=== PATIENT | female | born 1970 | race African-American/Black ===

== ENCOUNTER 2020-09-25 11:08 | Day surgery (SDC) | payer MEDICARE, SELFPAY ==
[2020-09-19 12:39] VITALS: BMI 35.2
--- NOTE | 2020-09-24 09:55 | HO.ANESPROP2 ---
Documented by User: Claudine Deshpande 09/24/20 09:56 HPI - Anesthesia Eval Consult details Narrative: 50yo F for Colonoscopy [facility] Past Medical History Medical History Bipolar 1 disorder Elevated cholesterol History of headache HTN (hypertension) PTSD (post-traumatic stress disorder) Surgical History Surgical History Hx of section Hx of hysterectomy Hx of laparoscopy Social History Social History Smoking Status: Never smoker Use of substances other than those prescribed or required for medical reasons: No Advance Directives Information Provided: No Meds Allergies Allergy/AdvReac Type Severity Reaction Status Date / Time No Known Allergies Allergy Verified 09/19/20 12:43 [No Known Allergies*] Home Medications Medication Instructions Recorded Confirmed Type naproxen 250 mg PO BID 09/19/20 09/19/20 History prazosin 2 mg PO BEDTIME 09/19/20 09/19/20 History sertraline 100 mg PO DAILY 09/19/20 09/19/20 History chlorthalidone 1 tab PO DAILY 09/25/20 09/25/20 History Exam Exam Date and Time: September 24, 2020 0955 Height,Weight and Vital Signs: Height 5 ft 4 in Weight 92.986 kg Pertinent Lab Results Pertinent Lab Results: Laboratory Tests 05/21/20 05/21/20 15:33 15:33 WBC 8.6 Hgb 10.9 L Hct 36.6 L Plt Count 345 Sodium 140 Potassium 3.7 Chloride 107 BUN 13 Creatinine 0.89 Assessment and Plan Assessment Anesthesia Assessment: Chart Reviewed Documented by User: Caitlyn Calderon 09/25/20 12:13 [facility] Past Medical History Medical History Bipolar 1 disorder Elevated cholesterol History of headache HTN (hypertension) PTSD (post-traumatic stress disorder) Surgical History Surgical History Hx of section Hx of hysterectomy Hx of laparoscopy Social History Social History Smoking Status: Never smoker Use of substances other than those prescribed or required for medical reasons: No Advance Directives Information Provided: No Meds Allergies Allergy/AdvReac Type Severity Reaction Status Date / Time No Known Allergies Allergy Verified 09/19/20 12:43 [No Known Allergies*] Home Medications Medication Instructions Recorded Confirmed Type naproxen 250 mg PO BID 09/19/20 09/19/20 History prazosin 2 mg PO BEDTIME 09/19/20 09/19/20 History sertraline 100 mg PO DAILY 09/19/20 09/19/20 History chlorthalidone 1 tab PO DAILY 09/25/20 09/25/20 History Exam Airway Mallampati Class: II TM Dist: >3cm Neck ROM: Full Assessment and Plan Assessment Anesthesia Assessment: Anesthesia Plan Discussed and Chart Reviewed Final Anesthetic Review NPO: Yes ASA Class: II Final Preanesthetic Review: No Changes in Pt Med Stat, Meds/Allgs Chart Reviewed, Consent Obtained/Reviewed and Anes Risks/Benef Reviewed Patient Risk: Low Procedure Risk: Low Assessment/Block/Sedation in SS: Assess/Block/Sedation-SS Anesthetic Plan Anesthetic Plan: MAC: Disposition: Standard PACU
[2020-09-25 11:45] VITALS: BP 143/87; PULSE 64; RESP 16; TEMP 36.6; O2SAT 99
[2020-09-25] MEDS: Lactated Ringers 1,000 ML 100 ML IVCONT (11:47)
--- NOTE | 2020-09-25 12:22 | MHC.SHP ---
Pre-Procedural Eval Section B Chief Complaint: SCREENING Details of Present Illness: colon cancer screening #1 (Maternal aunt with colon cancer) Relevant Family History (Specify if Yes): Yes Relevant Social History: None Present Medications: see Short Stay Collaborative assessment Medical History: Significant History (Hypertension, bmi>35) History of Previous Operations: Relevant previous surgery/procedure and date(s) (Csection, partial Hysterectomy) Allergies: Allergies Allergy/AdvReac Type Severity Reaction Status Date / Time No Known Allergies Allergy Verified 09/19/20 12:43 [No Known Allergies*] Review of Systems Sugical H&P ROS: Negative: Constitution, Respiratory, Neurological, Psychiatric and Gastrointestinal Exam Surgical H&P Exam: Normal: HEENT, Normal: Heart, Normal: Lungs, Normal: Extremities and Normal: Abdomen Plan Diagnosis/Plan: Unchanged Patient has been examined and remains a candidate for the planned procedure--YES
--- NOTE | 2020-09-25 13:01 | PM.PROC ---
Brief Operative Note Date of procedure: 09/25/20 Pre-op diagnosis: colon cancer screening Post-op diagnosis: other (Negative exam, excellent prep) Procedure: colonoscopy--no bx; no polyps Anesthesia: MAC (Dr. Bruner) Surgeon: Jessie Bee Estimated blood loss (mL): 0 Pathology: none sent Condition: stable Disposition: PACU
[2020-09-25 13:07] VITALS: BP 139/85; PULSE 74; RESP 18; TEMP 36.2; O2SAT 99
[2020-09-25 13:17] VITALS: BP 151/76; PULSE 58; RESP 18; O2SAT 100
--- NOTE | 2020-09-25 13:41 | HO.POSTANES ---
Post Anesthesia Evaluation Post Anesthesia Evaluation Vital Signs: Vital Signs Temp Pulse Resp BP Pulse Ox 09/25/20 13:17 58 18 151/76 H 100 09/25/20 13:07 97.1 F 74 18 139/85 99 09/25/20 11:45 97.8 F 64 16 143/87 H 99 Anesthesia: Monitored Mental Status: Awake Pain Control: Satisfactory Nausea/Vomiting: None Hydration: Adequate
--- NOTE | 2020-09-25 15:05 | P.PCN_ITS ---
Brief Operative Note Date of procedure: 09/25/20 Pre-op diagnosis: Colon cancer screening--+ hx colon cancer second degree rela tive Post-op diagnosis: other (Normal exam) Procedure: COLONOSCOPY Anesthesia: MAC (MD SHAWNA) Surgeon: Jessie Bee Estimated blood loss (mL): 0 Pathology: none sent Condition: stable Disposition: PACU
--- NOTE | 2020-09-25 22:16 | OP_ITS ---
SURGEON: Jessie Bee MD PREOPERATIVE DIAGNOSIS: Colon cancer screening, paternal aunt with a history of colon cancer. POSTOPERATIVE DIAGNOSIS: Negative/ normal exam. PROCEDURE PERFORMED: Colonoscopy. ESTIMATED BLOOD LOSS: No blood loss. COMPLICATIONS: No complications. ANESTHESIA: Monitored. ANESTHESIOLOGIST: Dr. Bruner. ASSISTANTS: No circulation assistant. SPECIMENS: No specimens removed. SPEECH LANGUAGE ASSISTANT: Dr. Bee. FINDINGS: Digital rectal exam revealed adequate sphincter tone. Video colonoscope was introduced without difficulty. It was navigated into the rectosigmoid and sigmoid area. This area was somewhat telescoped as well as suggestion of extrinsic adhesions with looping needing early on extrinsic abdominal pressure to facilitate movement through descending, transverse, ascending colon down into the cecum. Appendiceal orifice was seen. Ileocecal valve was well seen. Prep was excellent. Good mucosal detail. Slow rotational views on withdrawing the scope. No lesions were seen. Anorectal verge was clear. PLAN: Current recommendations for repeat asymptomatic screening in this patient will be 7 years due to a family history in a second-degree relative with colon cancer. GRAFT OR IMPLANTS: No grafts or implants. CONDITION: Postprocedure, stable. Jessie Bee MD MEN/MODL / [id number] MTDD
== END 2020-09-25 14:08 | disposition home or self-care (01) ==
PROVIDERS: PCP Physician Assistant; Visit Provider Internal Medicine Gastroenterology
PROC: 0DJD8ZZ Inspection of Lower Intestinal Tract, Via Natural or Artificial Opening Endoscopic (ICD-10-PCS; CPT 45378; principal; 2020-09-25 12:30)
DX: Z12.11 Encounter for screening for malignant neoplasm of colon (principal); F31.9 Bipolar disorder, unspecified; F43.10 Post-traumatic stress disorder, unspecified; I10 Essential (primary) hypertension; E78.00 Pure hypercholesterolemia, unspecified; Z90.710 Acquired absence of both cervix and uterus; Z79.899 Other long term (current) drug therapy
CPT/HCPCS: G0121

== ENCOUNTER → 2020-10-16 15:08 | Outpatient (BNVA) | payer MEDICARE, SELFPAY | PROVIDERS: PCP Physician Assistant; Referring Provider Physician Assistant; Visit Provider Nurse Practitioner | DX: E78.00 Pure hypercholesterolemia, unspecified (principal); I10 Essential (primary) hypertension; Z80.0 Family history of malignant neoplasm of digestive organs | CPT/HCPCS: 99212; Q3014 ==

== ENCOUNTER 2021-01-23 10:49 | Outpatient (REF) | payer MEDICARE, SELFPAY ==
--- NOTE | ~2021-01-23 | XR_ITS ---
EXAMINATION: XR LUMBOSACRAL SPINE CLINICAL INFORMATION: Pain COMPARISON: None TECHNIQUE: Three views of the lumbosacral spine. FINDINGS: Bone alignment is normal. No fracture or dislocation is seen. Disc spaces are normal. There is lower lumbar spine facet arthritis. XR/XR lumbar spine 2-3V IMPRESSION: Lower lumbar spine facet arthritis.
[2021-01-23 11:40] LABS: MANUAL DIFF FLAG NO
[2021-01-23 11:51] LABS: Basophils Percent Auto 0.6 % (0-2); Eosinophils Absolute Auto 0.1 X10*3/uL (0.0-0.4); Eosinophils Percent Auto 1.7 % (0-4); Hematocrit 39.9 % (37-47); Hemoglobin 11.8 g/dl (12.0-16.0); Imm Gran Abs Auto 0.01 X10*3/uL (0.00-0.03); Imm Gran Pct Auto 0.2 % (0.0-0.4); Lymphocytes Absolute Auto 2.1 X10*3/uL (1.2-4.9); Lymphocytes Percent Auto 31.9 % (20-40); Mean Corpuscular HGB Conc 29.6 g/dl (31.0-35.0); Mean Corpuscular Hemoglobin 21.7 pg (27.0-33.0); Mean Corpuscular Volume 73.3 fL (80-98); Mean Platelet Volume 11.2 fL (9.4-12.3); Monocytes Absolute Auto 0.4 X10*3/uL (0.1-1.2); Neutrophils Percent Auto 59.6 % (45-73); Platelet Count 406 X10*3/uL (160-400); Red Blood Count 5.44 X10*6/uL (4.20-5.50); Red Cell Distribution Width 15.7 % (11.0-16.0); White Blood Count 6.6 X10*3/uL (4.8-10.8)
[2021-01-23 12:35] LABS: Glucose Urine UA NEG (NEG); Leukocyte Esterase Urine NEG (NEG); Nitrite Urine NEG (NEG); PH 7.5 (5.0-8.0); Specific Gravity - Urine 1.025 (1.005-1.025); Urine Blood TRACE (NEG); Urine Ketones NEG (NEG); Urine Protein NEG (NEG-TRACE)
[2021-01-23 12:41] LABS: Appearance Urine CLOUDY; Color Urine YELLOW
[2021-01-23 12:55] LABS: Alanine Aminotransferase 21 U/L (0-31); Albumin Level 4.2 g/dL (3.5-5.0); Alkaline Phosphatase 66 U/L (39-117); Anion Gap 12 (12-20); Aspartate Amino Transferase 16 U/L (5-31); Bilirubin Total 0.5 mg/dL (0.0-1.0); Blood Urea Nitrogen 9 mg/dL (9-16); Calcium 9.1 mg/dL (8.4-10.2); Carbon Dioxide 25 mmol/L (22-29); Chloride 108 mmol/L (96-108); Cholesterol 241 mg/dL; Estimated Glomerular Filt Rate > 60; Glucose Fasting 94 mg/dL (60-99); HDL Cholesterol 42 mg/dL; LDL Cholesterol Calculated 172 mg/dl; Potassium 4.1 mmol/L (3.3-5.1); Sodium 141 mmol/L (135-145); Total Protein 7.2 g/dL (6.5-8.0); Triglycerides 135 mg/dL
[2021-01-23 13:19] LABS: Amorphous Sediment Urine 3+ /LPF; Bacteria Urine TRACE /LPF; WBC Urine 0-2 /HPF (0-4)
== END 2021-01-23 10:50 | disposition home or self-care (01) ==
LOC: HO.LAB 10:49
PROVIDERS: PCP Physician Assistant; Visit Provider Nurse Practitioner Family
DX: M54.9 Dorsalgia, unspecified (principal); I10 Essential (primary) hypertension; E78.00 Pure hypercholesterolemia, unspecified; N39.0 Urinary tract infection, site not specified
CPT/HCPCS: 36415; 72100; 80053; 80061; 81001; 81003; 85025

== ENCOUNTER 2022-06-07 12:12 | Outpatient (REF) | payer MEDICARE, SELFPAY ==
--- NOTE | ~2022-06-07 | MM_ITS ---
EXAMINATION: MM SCREENING DIGITAL BREAST TOMOSYNTHESIS, BILATERAL CLINICAL INFORMATION: Screening. Asymptomatic. The lifetime risk of breast cancer based on the Tyrer-Cuzick Model is 6%. COMPARISON: Mammography: 920, 02/01/2019, outside mammography 03/24/2011 ([facility]). TECHNIQUE: Digital breast tomosynthesis is performed in both the craniocaudal and mediolateral oblique views along with computer-aided detection (CAD). Synthesized 2D images are generated from the tomosynthesis. FINDINGS: There are scattered areas of fibroglandular density (ACR BI-RADS breast composition Category b). There are no significant masses, abnormal calcifications, or other abnormalities. Parenchymal pattern is similar to prior studies. The axilla and skin contours are unremarkable. MM/MM tomosynthesis screening BI IMPRESSION: No mammographic evidence of malignancy. ASSESSMENT: BI-RADS 1: Negative RECOMMENDATION: Routine annual mammography screening. This patient's information was entered into a reminder system with a target due date for their next mammogram.
== END 2022-06-07 12:13 | disposition home or self-care (01) ==
LOC: HO.MAMMO 12:12
PROVIDERS: PCP Physician Assistant; Visit Provider Physician Assistant
DX: Z12.31 Encounter for screening mammogram for malignant neoplasm of breast (principal)
CPT/HCPCS: 77063; 77067

== ENCOUNTER → 2023-03-08 09:07 | Outpatient (BNVA) | payer MEDICARE, SELFPAY | PROVIDERS: PCP Physician Assistant; Visit Provider Physician Assistant ==

== ENCOUNTER → 2023-04-13 13:59 | Outpatient (BNVA) | payer OTHER, SELFPAY | PROVIDERS: PCP Physician Assistant; Referring Provider Physician Assistant; Visit Provider Physician Assistant Surgical ==

== ENCOUNTER → 2023-05-17 10:40 | Outpatient (BNVA) | payer OTHER, SELFPAY | PROVIDERS: PCP Physician Assistant; Visit Provider Dietitian, Registered | DX: E66.9 Obesity, unspecified (principal); Z68.33 Body mass index [BMI] 33.0-33.9, adult | CPT/HCPCS: 97802 ==

== ENCOUNTER 2023-08-09 10:03 | Outpatient (AMB) | payer OTHER, SELFPAY ==
--- NOTE | 2023-08-09 10:03 | MHC.OFFVISWM ---
Intake VS Expanded 08/09/23 10:07 Height 5 ft 4 in Weight 200 lb BMI 34.3 BP 147/82 H Blood Pressure Location Rt brachial Blood Pressure Position Sitting Pulse 72 Pulse Source Pulse Oximeter Temp 97.0 F Temperature Source Temporal Artery Scan Pulse Oximetry 100 Oxygen Delivery Method Room Air Body Fat 83.6 Body Fat Percentage 41.8 Free Fat Mass 116.4 Muscle Mass 110.4 Visceral Mass 11.0 Water Mass 82.6 BMR 1,610 Intake Visit Reasons: [facility] follow up Allergies No Known Allergies [No Known Allergies*] Allergy (Verified 08/09/23 10:06) Medication List - Last Reconciled 08/09/23 by EMMIE Quintero chlorthalidone 50 mg PO DAILY cyclobenzaprine 10 mg PO BEDTIME PRN 30 days fluticasone propionate 50 mcg/actuation (Flonase Allergy Relief) 2 sprays intranasal DAILY ibuprofen 600 mg PO Q8H PRN 30 days loratadine (Claritin) 10 mg PO DAILY prazosin 2 mg PO BEDTIME sertraline 200 mg PO DAILY HPI HPI Comments History of Present Illness Details Pt presents in followup for [facility]. Visit #3. Starting weight: 204.6 Weight at last visit: 195 Total weight change: -4.6 Pt notes she was motivated when she started the plan but lost that after last visit. [place] overwhelmed, did watch [facility] videos but unsure if she processed all the information. Current meal plan: Premier protein shakes premade second premier shake snack - sami [employer] 20g protein yogurt meal Exercise: walking 40 minutes PFS Medical History Bipolar 1 disorder History of headache PTSD (post-traumatic stress disorder) Surgical History History of colonoscopy Hx of hysterectomy Hx of laparoscopy Hx of section Family History Father Unknown family medical history Mother Hx of type 2 diabetes mellitus Family history of high blood pressure Hx of gallstones History of ulcer disease Larynx cancer Social History Housing: House Alcohol intake: former Patient Tobacco Use Status: Never used Tobacco e-Cigarette/Vaping Use: Never Used Current occupational status: retired and disabled Cognitive needs: No Hearing needs: No Vision needs: Yes Physical Exam Vital Signs: Last Vital Signs Temp 97.0 F 08/09/23 10:07 Pulse 72 08/09/23 10:07 BP 147/82 H 08/09/23 10:07 Pulse Ox 100 08/09/23 10:07 Oxygen Delivery Method Room Air 08/09/23 10:07 BMI result Body Mass Index 34.3 Assessment & Plan Assessment & Plan (1) Obese: Code(s): E66.9 - Obesity, unspecified Qualifiers: Obesity type: due to excess calories Obesity classification: adult class 1 (BMI 30 - 34.9) Serious obesity comorbidity presence: without serious comorbidity Body mass index: BMI 33.0-33.9 Qualified Code(s): E66.09 - Other obesity due to excess calories; Z68.33 - Body mass index [BMI] 33.0-33.9, adult Plan We discussed whether pt would like changes to meal plan today but pt did say the plan was overall working well for her when she did it and she would like to try again. Suggested watching [employer] videos again to review. Can also change her meal time to lunch and have a shake for dinner if that works better with her schedule for that day. If she starts to struggle with this plan I encouraged her to reach out before next appt via email and we can adjust. Reminded pt to have labs drawn. RTC 1 month to see me; at this time pt is not interested in another visit with RD. Patient is obese and is not considered stable at this time. I spent a total of 30 minutes reviewing/updating records, examining the patient and counseling the patient on weight management as detailed above. Coding Level of Care Code Est Pt Level 4 (30953) Diagnoses Class 1 obesity due to excess calories without serious comorbidity with body mass index (BMI) of 33.0 to 33.9 in adult E66.09; Z68.33 Obesity type: due to excess calories Obesity classification: adult class 1 (BMI 30 - 34.9) Serious obesity comorbidity presence: without serious comorbidity Body mass index: BMI 33.0-33.9
[2023-08-09 10:07] VITALS: BP 147/82; PULSE 72; TEMP 36.1; O2SAT 100; BMI 34.3
== END 2023-08-09 10:41 | disposition home or self-care (01) ==
PROVIDERS: PCP Physician Assistant; Visit Provider Physician Assistant Surgical
DX: E66.09 Other obesity due to excess calories (principal); Z68.33 Body mass index [BMI] 33.0-33.9, adult
CPT/HCPCS: 99214

== ENCOUNTER → 2023-08-09 10:03 | Outpatient (BNVA) | payer OTHER, SELFPAY | PROVIDERS: PCP Physician Assistant; Visit Provider Physician Assistant Surgical ==

== ENCOUNTER 2023-09-19 09:14 | Outpatient (REF) | payer OTHER, SELFPAY ==
[2023-09-19 09:53] LABS: MANUAL DIFF FLAG NO
[2023-09-19 10:49] LABS: Basophils Percent Auto 0.5 % (0-2); Eosinophils Absolute Auto 0.2 X10*3/uL (0.0-0.4); Eosinophils Percent Auto 2.5 % (0-4); Hematocrit 34.9 % (37.0-47.0); Hemoglobin 10.5 g/dl (12.0-16.0); Imm Gran Abs Auto 0.02 X10*3/uL (0.00-0.03); Imm Gran Pct Auto 0.3 % (0.0-0.4); Lymphocytes Absolute Auto 2.3 X10*3/uL (1.2-4.9); Lymphocytes Percent Auto 30.5 % (20-40); Mean Corpuscular HGB Conc 30.1 g/dl (31.0-35.0); Mean Corpuscular Hemoglobin 21.9 pg (27.0-33.0); Mean Corpuscular Volume 72.7 fL (80.0-98.0); Mean Platelet Volume 11.2 fL (9.4-12.3); Monocytes Absolute Auto 0.5 X10*3/uL (0.1-1.2); Monocytes Percent Auto 6.1 % (2-11); Neutrophils Absolute Auto 4.5 x10*3/uL (2.0-8.3); Neutrophils Percent Auto 60.1 % (45-73); Platelet Count 351 X10*3/uL (160-400); Red Cell Distribution Width 15.6 % (11.0-16.0); White Blood Count 7.5 X10*3/uL (4.8-10.8)
[2023-09-19 11:17] LABS: Estimated Average Glucose 114 mg/dL; Hemoglobin A1c % 5.6 % (<6.0)
[2023-09-19 11:28] LABS: Alanine Aminotransferase 39 U/L (0-31); Alkaline Phosphatase 63 U/L (39-117); Anion Gap 13 (12-20); Aspartate Amino Transferase 33 U/L (5-31); Bilirubin Total 0.4 mg/dL (0.0-1.0); Blood Urea Nitrogen 11 mg/dL (9-16); C Reactive Protein 0.99 mg/dL (< or = 0.50); Calcium 9.4 mg/dL (8.4-10.2); Carbon Dioxide 27 mmol/L (22-29); Chloride 105 mmol/L (96-108); Cholesterol 192 mg/dL (<200); Estimated Glomerular Filt Rate > 60; Glucose Random 93 mg/dL (60-115); HDL Cholesterol 43 mg/dL (>40); Iron 59 mcg/dL (30-160); LDL Cholesterol Calculated 137 mg/dL (<100); Percent Iron Saturation 24 % (15-50); Potassium 3.1 mmol/L (3.3-5.1); Sodium 142 mmol/L (135-145); Total Iron Binding Capacity 242 mcg/dL (228-428); Total Protein 7.2 g/dL (6.5-8.0); Triglycerides 63 mg/dL (<150); Unsaturated Iron Binding 183 ug/dL
[2023-09-19 11:53] LABS: Folate 9.9 ng/mL (> or = 4.0); Vitamin B12 217 pg/mL (200-900)
[2023-09-19 11:54] LABS: Ferritin 121 ng/mL (10-250); Insulin 11 uU/mL (2-29); TSH reflex Free T4 0.88 uIU/mL (0.32-4.0); Vitamin D 25-OH Total 20.7 ng/mL (>30)
[2023-09-20 18:13] LABS: Calcium (PTHI) 8.4 mg/dL (8.6-10.4); PTHI 57 pg/mL (16-77)
[2023-09-22 14:19] LABS: Vitamin B1 11 nmol/L (8-30)
[2023-09-22 16:19] LABS: Zinc 67 mcg/dL (60-130)
[2023-09-23 04:03] LABS: Vitamin A 43 mcg/dL (38-98)
== END 2023-09-19 09:15 | disposition home or self-care (01) ==
LOC: HO.LAB 09:14
PROVIDERS: Visit Provider Physician Assistant Surgical
DX: E66.9 Obesity, unspecified (principal); Z59.48 Other specified lack of adequate food
CPT/HCPCS: 36415; 80053; 80061; 82306; 82607; 82728; 82746; 83036; 83525; 83540; 83970; 84425; 84443; 84590; 84630; 85025; 86140

== ENCOUNTER 2023-09-28 09:38 | Outpatient (AMB) | payer OTHER, SELFPAY ==
[2023-09-28 09:41] VITALS: BP 142/100; PULSE 70; RESP 17; O2SAT 95; BMI 35.4
--- NOTE | 2023-09-28 09:41 | A.OFFPC_ITS ---
Vital Signs 09/28/23 09:41 09/28/23 10:35 Height 5 ft 4 in Weight 206 lb 6 oz BMI 35.4 BP 142/100 H 158/96 H Blood Pressure Location Lt brachial Position Sitting Respiration 17 Pulse 70 Pulse Source Pulse Oximeter Pulse Oximetry (%) 95 Oxygen Delivery Method Room Air Intake Visit Reasons: PE Allergies No Known Allergies [No Known Allergies*] Allergy (Verified 09/28/23 10:07) Medication List - Last Reconciled 09/28/23 by Ozzie Rivas PA-C chlorthalidone 50 mg PO DAILY cholecalciferol (vitamin D3) 50 mcg PO DAILY cyclobenzaprine 10 mg PO BEDTIME PRN 30 days fluticasone propionate 50 mcg/actuation (Flonase Allergy Relief) 2 sprays intranasal DAILY ibuprofen 600 mg PO Q8H PRN 30 days iron,carbonyl-vitamin C 65 mg iron- 125 mg (Vitron-C) 1 tab PO BEDTIME loratadine (Claritin) 10 mg PO DAILY prazosin 2 mg PO BEDTIME sertraline 200 mg PO DAILY Tobacco use date assessed: 05/11/22 HPI PE HPI Details Patient is a 53-year-old female here today for annual physical. Patient has a past medical history significant for hypertension, hyperlipidemia chronic low back pain, PTSD, MDD. .. PTSD: Patient is followed by psychiatrist and mental health therapist whom managers her mental health medications. She still has prolonged grief symptoms secondary to traumatic experience .. : Hypertension: Blood pressure elevated today in office. She continues to be adherent to her blood pressure medication. Does not monitor blood pressure at home. Otherwise denies any chest discomfort, headaches, vision issues. .. Obesity: Not followed [place] weight management program and [facility] is. Was able to lose weight recently though has gained it back. She is somewhat discouraged at this time. Colonoscopy: Done in [address] Bee normal repeat 7 years due to family history colon cancer Vaccines: Up-to-date with COVID vaccine, UTD Tdap. Mammogram: Mammogram 2021 - BI-RADS 1. Needs up-to-date mammogram- Will order [employer]: Had a partial hysterectomy. ( linn [employer]) Reviewed labs with patient and noted a microcytic anemia. She reports she has a thalassemia. Has had iron infusions in the past with good affect on her energy. Will refer to hematology for evaluation of possible iron infusions Laboratory Tests 10/23/23 09:51 RBC 4.80 Hgb 10.5 L MCV 72.7 L Potassium 3.1 L D AST 33 H 25-OH Vitamin D To jasiel 20.7 L Zinc 67 PFSH Medical History Lower back pain UTI (urinary tract infection) Back pain History of headache Elevated cholesterol HTN (hypertension) Surgical History History of colonoscopy Hx of hysterectomy Hx of laparoscopy Hx of section Family History (Updated 09/28/23 @ 10:15 by Ozzie Rivas PA-C) Father Unknown family medical history Mother Hx of type 2 diabetes mellitus Family history of high blood pressure Hx of gallstones History of ulcer disease Larynx cancer Brother Prostate cancer Social History Housing: House Alcohol intake: former Patient Tobacco Use Status: Never used Tobacco e-Cigarette/Vaping Use: Never Used Current occupational status: retired and disabled Cognitive needs: No Hearing needs: No Vision needs: Yes Questionnaire PHQ-9 Over the last 2 weeks, how often have you been bothered by any of the following problems? 1. Little interest or pleasure in doing things: nearly every day 2. Feeling down, depressed, or hopeless: nearly every day 3. Trouble falling or staying asleep, or sleeping too much: more than half the days 4. Feeling tired or having little energy: more than half the days 5. Poor appetite or overeating: not at all 6. Feeling bad about yourself - or that you are a failure or have let yourself or your family down: not at all 7. Trouble concentrating on things, such as reading the newspaper or watching television: not at all 8. Moving or speaking so slowly that other people could have noticed. Or the opposite - being so fidgety or restless that you have been moving around a lot more than usual: not at all 9. Thoughts that you would be better off or of hurting yourself in some way: not at all (Per patient is more about hurting other people. ) Total score: 10 Depression Screening Interpretation: Positive Depression Screening Follow-up: In treatment Depression Screening Done: Yes 44145 - PHQ-9 Billing: Yes Source: Developed by Tatyana Vela Kurt Kroenke and colleagues, with an educational juan from [employer]. Thrive Questionnaire Date Thrive assessed: 09/28/23 I am a: Patient What is your living situation today?: I have a steady place to live Within the past 12 months, did the food you bought not last and you didn't have the money to get more?: Never true Within the past 12 months, did you worry whether your food would run out before you got money to buy more?: Never true Do you have trouble paying for medicines?: No Do you have trouble getting transportation to medical appointments?: No Do you have trouble paying your heating and electricity bill?: No Do you have trouble taking care of your child, family member or friend?: No Do you have trouble with day-to-day activities such as bathing, preparing meals, shopping, managing finances, etc.?: No Are you currently unemployed and looking for a job?: No Are you interested in more education?: No Please select the resources that you would like help with: None Currently or been in a relationship where the following occur: no concerns reported AUDIT C Alcohol Use Questionnaire (AUDIT-C) 1. How often do you have a drink containing alcohol?: Never 3. How often do you have six or more drinks on one occasion?: Never Total Score: 0 DESTINEE-7 AMB Questionnaire DESTINEE-7 Date DESTINEE - 7 assessed: 09/28/23 Feeling nervous, anxious, or on edge: 3 = Nearly every day Not being able to stop or control worryin = Nearly every day Worrying too much about different things: 3 = Nearly every day Trouble relaxin = More than half the days Being so restless that it is hard to sit still: 2 = More than half the days Becoming easily annoyed or irritable: 3 = Nearly every day Feeling afraid as if something awful might happen: 0 = Not at all Total DESTINEE-7 score (0-4 normal; 5-9 mild; 10-14 moderate; 15-21 severe): 16 Source: Developed by Tatyana Vela Kurt Kroenke and colleagues, with an educational juan from [employer]. DESTINEE-7 Assessment Billing DESTINEE-7 Assessment Tool: DESTINEE-7 Assessment 91339 Review of Systems Const Denies body aches, Denies chills, Denies excessive sweating, Denies fatigue, Denies fever(s) and Denies headache(s) Eyes Denies blurry vision ENT Denies dysphagia, Denies vertigo, Denies dizziness, Denies headache(s), Denies hearing loss and Denies tinnitus Card Denies chest pain, Denies chest pain with activity, Denies syncope, Denies irregular heart rhythm and Denies dyspnea Resp Denies chest congestion, Denies cough, Denies hemoptysis, Denies dyspnea and Denies wheezing GI Denies abdominal pain, Denies melena, Denies hematochezia, Denies coffee ground emesis, Denies dysphagia, Denies diarrhea, Denies nausea and Denies vomiting Denies urinary frequency, Denies dysuria, Denies urinary hesitancy and Denies urinary urgency Musc Denies arthralgias, Denies limited range of motion, Denies muscle cramps and Denies muscle weakness Skin/Breast Denies rash and Denies skin ulcer Neuro Denies Abnormal speech present, Denies confusion, Denies vertigo, Denies dizziness, Denies syncope, Denies headache(s), Denies memory loss and Denies seizure-like activity Psych Denies anxiety, Denies confusion, Denies depression, Denies memory loss, Denies panic attacks and Denies paranoia Endo Denies excessive sweating, Denies fatigue, Denies flushing, Denies polydipsia and Denies polyuria Aller/Immun Denies wheezing Physical exam (Primary Care) Vital Signs: Last Vital Signs Pulse 70 09/28/23 09:41 Resp 17 09/28/23 09:41 BP 158/96 H 09/28/23 10:35 Pulse Ox 95 09/28/23 09:41 Oxygen Delivery Method Room Air 09/28/23 09:41 BMI result Body Mass Index 35.4 Tobacco/Smoking Status: Tobacco use Status Tobacco use date assessed 05/11/22 09/28/23 09:45 Patient Tobacco Use Status Never used Tobacco 09/28/23 09:45 e-Cigarette/Vaping Use Never Used 09/28/23 09:45 PHQ-9: PHQ-9 Score PHQ-9: Total score 10 09/28/23 10:10 Depression Screening Interpretation: Positive Depression Screening Follow-up: In treatment Thrive Assessment: Date of Thrive Assessment Date Thrive assessed 09/28/23 09/28/23 09:53 Currently or been in a relationship where the following occur: no concerns reported Const General: cooperative, comfortable, no acute distress, alert and awake; No confusion Orientation/consciousness: oriented to person, oriented to place, patient oriented x3 and No confusion HENMT Head: Yes normocephalic Ears: external ears normal and TM's normal bilaterally Face and sinus: No sinus tenderness Mouth: Normal oral and palatal mucosa present and tongue normal Teeth and gingiva: dentition normal and gingiva normal Throat: Yes posterior oropharynx normal, Yes tonsils normal and Yes uvula midline Eyes Conjunctivae: conjunctivae normal Sclerae: sclerae normal Pupils: Equal, round and reactive pupils present EOM: EOMs intact bilaterally Direct Ophthalmoscopy: No no photophobia Neck Neck: Yes no lymphadenopathy, No tender and Yes no JVD Thyroid: Thyroid normal Carotids: no bruits Chest Chest palpation & inspection: no tenderness Resp Effort & Inspection: normal respiratory effort, no audible wheezes, not labored and no stridor Auscultation: no crackles, no rales, no rhonchi and no wheezes Cardio Jugular venous distension: no JVD Rate: regular rate, not bradycardic and not tachycardic Rhythm: regular rhythm Bruits: no carotid bruits Peripheral pulses: Peripheral pulses 2+ throughout GI Inspection: Yes normal to inspection, No abdominal wall ecchymosis and No visible herniation Palpation (GI): Soft to palpation, nontender, no guarding, not rigid and No hepatosplenomegaly present Auscultation: normoactive bowel sounds General: Yes no CVA tenderness Back/Spine/Pelvis Back: no CVA tenderness and No back tenderness Cervical Spine: cervical ROM normal Thoracic/Lumbar Spine: thoracic and lumbar spine normal to inspection, straight leg raise negative bilaterally, No thoraco-lumbar ROM limited and No lumbar spinal tenderness Skin Lesions: no lesions Rashes: no rashes Wounds: no wounds Neuro General: oriented to person, oriented to place, patient oriented x3, CN's II-XI intact bilaterally and No confusion Cranial nerves: Yes Equal, round and reactive pupils present and Yes Normal accommodation reflex present Cognition (Neuro): normal cognition Speech: No Abnormal speech present Gait exam (Neuro): Normal gait present Motor exam (neuro): 5/5 motor strength present throughout Extrem Right upper extremity: full ROM; no cyanosis Left upper extremity: full ROM; no cyanosis Right lower extremity: no edema Left lower extremity: no edema Psych Appearance: grossly normal Mental Status: mental status grossly normal Affect: normal affect Attitude: cooperative Thought process: Normal thought process present Office Procedures Flu Questionnaire Does the patient have a severe egg allergy?: No Does the patient have severe life threatening allergies?: No Does the patient have a fever or illness today?: No Has the patient ever had Guillain-[place] Syndrome?: No Has the patient ever had any past reaction to a flu shot?: No Immunizations flu vacc [id number] 6mos up(PF) 60 mcg(15 mcgx4)/0.5 mL IM syringe Performing Provider: Ozzie Rivas PA-C Performing Location: [facility] Administered by: CRESENCIO Schwartz on 09/28/23 09:57 Dose Route Admin Location Dispensed Lot Number Expiration Date 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 0.5 mL IM Left Deltoid 0.5 mL [id number] 05/27/24 [id number] [employer] VIS Given Date VIS Provided VIS Publication Date 09/28/23 Single Vaccine 21 Eligibility Eligibility Date Funding Source Not [facility] Eligible 09/28/23 Private Assessment and Plan Assessment & Plan (1) Annual physical exam: Code(s): Z00.00 - Encounter for general adult medical examination without abnormal findings (2) HTN (hypertension): Code(s): I10 - Essential (primary) hypertension Qualifiers: Hypertension type: unspecified Qualified Code(s): I10 - Essential (primary) hypertension Plan: Blood pressure elevated today in office. Advised on low-sodium diet and continu e to work on weight reduction. Advised to monitor blood pressure at home. Will consider adding on amlodipine to her blood pressure med regime if blood pressures remain above 140/90. Goal blood pressures to be below 140/90. (3) Elevated cholesterol: Code(s): E78.00 - Pure hypercholesterolemia, unspecified Plan: . Patient does have history of elevated total cholesterol and LDL. Will recheck fasting lipids and if LDL above 160 will consider starting statin medication. (4) Family history of colon cancer: Comment: In a 2nd degree relative negative scope 08/2020 repeat 7 years aeb Code(s): Z80.0 - Family history of malignant neoplasm of digestive organs Plan: Colonoscopy done In 2020, has family history of colon cancer in secondary relative, needs repeat 7 years. (5) PTSD (post-traumatic stress disorder): Code(s): F43.10 - Post-traumatic stress disorder, unspecified Plan: Continues to follow mental health therapist and a psychiatrist whom manages her mental health medications. She still does suffer with depression and anxiety and mood swings. She has been working on this with her psychiatrist and mental health therapist. (6) Bipolar 1 disorder: Code(s): F31.9 - Bipolar disorder, unspecified Plan: Patient's PHQ-9 score positive for moderate depression. Has been existing condition for her Is seeing a psyciatrist and mental health therapist. (7) Obese: Code(s): E66.9 - Obesity, unspecified Qualifiers: Body mass index: BMI 33.0-33.9 Obesity classification: adult class 1 (BMI 30 - 34.9) Obesity type: due to excess calories Serious obesity comorbidity presence: without serious comorbidity Qualified Code(s): E66.09 - Other obesity due to excess calories; Z68.33 - Body mass index [BMI] 33.0-33.9, adult Plan: Does understand his BMI is over 30 will work on being more physically active and acting better eating habits to reduce her weight. She has started with the weight management program and has been able to lose some weight recently. (8) Breast cancer screening: Code(s): Z12.39 - Encounter for other screening for malignant neoplasm of breast Qualifiers: Breast cancer screening modality: mammogram Qualified Code(s): Z12.31 - Encounter for screening mammogram for malignant neoplasm of breast Plan: Needs mammogram (9) Microcytic anemia: Code(s): D50.9 - Iron deficiency anemia, unspecified Plan: Noted a microcytic anemia which has been a chronic finding. She would like to see a grain trimmer for possible iron infusion. Orders: Orders Influenza [id number] Immunization Today Z23 - Encounter for immunization MM screening mammo BI Today Z12.31 - Encounter for screening mammogram for malignant neoplasm of breast Referrals Hematology & Oncology Referral D50.9 - Iron deficiency anemia, unspecified Coding Level of Care Code Est Pt Prev Care 40-64y(81675) Diagnoses Annual physical exam Z00.00 Hypertension, unspecified type I10 Hypertension type: unspecified Elevated cholesterol E78.00 Family history of colon cancer Z80.0 PTSD (post-traumatic stress disorder) F43.10 Bipolar 1 disorder F31.9 Class 1 obesity due to excess calories without serious comorbidity with body mass index (BMI) of 33.0 to 33.9 in adult E66.09; Z68.33 Body mass index: BMI 33.0-33.9 Obesity classification: adult class 1 (BMI 30 - 34.9) Obesity type: due to excess calories Serious obesity comorbidity presence: without serious comorbidity Encounter for screening mammogram for malignant neoplasm of breast Z12.31 Breast cancer screening modality: mammogram Microcytic anemia D50.9 Additional Codes DESTINEE-7 Assessment Billing - DESTINEE-7 Assessment Tool: DESTINEE-7 Assessment 16079 ([id number])
[2023-09-28 10:35] VITALS: BP 158/96
== END 2023-09-28 10:44 | disposition home or self-care (01) ==
PROVIDERS: PCP Physician Assistant; Visit Provider Physician Assistant
DX: Z00.00 Encounter for general adult medical examination without abnormal findings (principal); I10 Essential (primary) hypertension; F31.9 Bipolar disorder, unspecified; E78.00 Pure hypercholesterolemia, unspecified; Z80.0 Family history of malignant neoplasm of digestive organs; F43.10 Post-traumatic stress disorder, unspecified; E66.09 Other obesity due to excess calories; Z68.33 Body mass index [BMI] 33.0-33.9, adult; Z12.31 Encounter for screening mammogram for malignant neoplasm of breast; D50.9 Iron deficiency anemia, unspecified; Z23 Encounter for immunization
CPT/HCPCS: 90471; 90686; 96127; 99396

== ENCOUNTER → 2023-10-11 08:58 | Outpatient (BNV) | payer OTHER, SELFPAY | PROVIDERS: PCP Physician Assistant; Visit Provider Internal Medicine Medical Oncology | DX: D50.9 Iron deficiency anemia, unspecified (principal) | CPT/HCPCS: 99204; 99213 ==

== ENCOUNTER → 2023-10-21 07:45 | Outpatient (BNV) | payer OTHER, SELFPAY | PROVIDERS: PCP Physician Assistant; Visit Provider Radiology Diagnostic Radiology | DX: Z12.31 Encounter for screening mammogram for malignant neoplasm of breast (principal) | CPT/HCPCS: 77063; 77067 ==

== ENCOUNTER 2023-10-21 07:47 | Outpatient (REF) | payer OTHER, SELFPAY | END 2023-10-21 07:48 | disposition home or self-care (01) | LOC: HO.MAMMO 07:47 | PROVIDERS: PCP Physician Assistant; Visit Provider Physician Assistant | DX: Z12.31 Encounter for screening mammogram for malignant neoplasm of breast (principal) | CPT/HCPCS: 77063; 77067 ==

== ENCOUNTER 2023-11-04 09:15 | Outpatient (REF) | payer OTHER, SELFPAY ==
[2023-11-04 10:10] LABS: Appearance Urine Clear; Color Urine Yellow; Glucose Urine UA Negative (Negative); Leukocyte Esterase Urine Negative (Negative); Nitrite Urine Negative (Negative); Specific Gravity - Urine 1.025 (1.005-1.025); Urine Blood Negative (Negative); Urine Ketones Negative (Negative); Urine Protein Negative (Neg-Trace)
== END 2023-11-04 09:16 | disposition home or self-care (01) ==
LOC: HO.LAB 09:15
PROVIDERS: PCP Physician Assistant; Visit Provider Physician Assistant
DX: R30.0 Dysuria (principal); N39.0 Urinary tract infection, site not specified
CPT/HCPCS: 81003; 87086

== ENCOUNTER 2024-08-17 08:19 | Outpatient (AMB) | payer OTHER, SELFPAY ==
[2024-08-17 08:36] VITALS: BP 132/86; PULSE 64; O2SAT 96; BMI 35.3
--- NOTE | 2024-08-17 08:36 | MHC.OFFWIV ---
Intake Vital Signs 08/17/24 08:36 Height 5 ft 4 in Weight 205 lb 8 oz BMI 35.3 BP 132/86 Blood Pressure Location Lt brachial Position Sitting Pulse 64 Pulse Source Pulse Oximeter Pulse Oximetry (%) 96 Oxygen Delivery Method Room Air Intake Visit Reasons: EP LT ear blockage Patient Tobacco Use Status: Never used Tobacco Allergies No Known Allergies [No Known Allergies*] Allergy (Verified 08/17/24 08:39) Medication List - Last Reconciled 08/17/24 by Shivam Franks MD chlorthalidone 50 mg PO DAILY cholecalciferol (vitamin D3) 50 mcg PO DAILY cyclobenzaprine 10 mg PO BEDTIME PRN 30 days fluticasone propionate 50 mcg/actuation (Flonase Allergy Relief) 2 sprays intranasal DAILY 30 days folic acid 1 mg PO DAILY iron,carbonyl-vitamin C 65 mg iron- 125 mg (Vitron-C) 1 tab PO BEDTIME loratadine (Claritin) 10 mg PO DAILY 90 days polyethylene glycol 3350 (Miralax) 17 grams PO DAILY 14 days prazosin 2 mg PO BEDTIME 90 days sertraline 200 mg (2 x 100 mg) PO DAILY 90 days Do you need a note to return to daycare/school/sports/work: No HPI EP LT ear blockage HPI Details Patient is a 54-year-old female who was trying to clean her ears yesterday and afterward felt blocked in her left ear There is no fever chills no pain in the ear On examination both of her ears are impacted with cerumen Both ears were irrigated with good result patient is feeling better PFSH Medical History Lower back pain UTI (urinary tract infection) Back pain History of headache Elevated cholesterol HTN (hypertension) Surgical History History of colonoscopy Hx of hysterectomy Hx of laparoscopy Hx of section Family History Father Unknown family medical history Mother Hx of type 2 diabetes mellitus Family history of high blood pressure Hx of gallstones History of ulcer disease Larynx cancer Brother Prostate cancer Social History Housing: House Alcohol intake: former Patient Tobacco Use Status: Never used Tobacco e-Cigarette/Vaping Use: Never Used Current occupational status: retired and disabled Cognitive needs: No Hearing needs: No Vision needs: Yes Review of Systems Const All systems reviewed & are unremarkable except as noted in HPI and below Physical Exam Vital Signs: Last Vital Signs Pulse 64 08/17/24 08:36 BP 132/86 08/17/24 08:36 Pulse Ox 96 08/17/24 08:36 Oxygen Delivery Method Room Air 08/17/24 08:36 BMI result Body Mass Index 35.3 Const General: no acute distress Orientation/consciousness: patient oriented x3 HEENT Other: Bilateral cerumen impaction Eyes General: appearance normal, both eyes and all related structures Resp Effort & Inspection: normal respiratory effort and able to speak in complete sentences Neuro General: patient oriented x3 Psych Mental Status: mental status grossly normal Office Procedures Cerumen Removal From which ear canal was the cerumen removed: bilateral Removal: irrigation Notes: patient tolerated procedure well, no complications and ear canal clear [id number] Irrigation/Lavage Assessment & Plan Assessment & Plan (1) Blocked ear: Code(s): H93.8X9 - Other specified disorders of ear, unspecified ear Qualifiers: Laterality: left Qualified Code(s): H93.8X2 - Other specified disorders of left ear (2) Bilateral impacted cerumen: Code(s): H61.23 - Impacted cerumen, bilateral Plan Patient is a 54-year-old female who was trying to clean her ears yesterday and afterward felt blocked in her left ear There is no fever chills no pain in the ear On examination both of her ears are impacted with cerumen Both ears were irrigated with good result patient is feeling better Coding Level of Care Code Est Pt Level 3 (44086) Diagnoses Sensation of plugged ear on left side H93.8X2 Laterality: left Bilateral impacted cerumen H61.23 CPT Codes Office Procedure - CPT: 22873-Vit Irrigation/Lavage ([id number])
== END 2024-08-17 09:10 | disposition home or self-care (01) ==
PROVIDERS: PCP Physician Assistant; Visit Provider Internal Medicine
DX: H93.8X2 Other specified disorders of left ear (principal); H61.23 Impacted cerumen, bilateral

== ENCOUNTER → 2024-08-17 08:19 | Outpatient (BNVA) | payer OTHER, SELFPAY | PROVIDERS: PCP Physician Assistant | DX: H61.23 Impacted cerumen, bilateral (principal); H93.8X2 Other specified disorders of left ear | CPT/HCPCS: 69209 ==

== ENCOUNTER 2024-10-02 14:49 | Outpatient (AMB) | payer OTHER, SELFPAY ==
--- NOTE | 2024-10-02 14:52 | A.OFFPC_ITS ---
Vital Signs 10/02/24 14:53 Height 5 ft 4 in Weight 211 lb 8 oz BMI 36.3 BP 128/80 Blood Pressure Location Lt brachial Position Sitting Pulse 76 Pulse Source Pulse Oximeter Pulse Oximetry (%) 95 Oxygen Delivery Method Room Air Intake Visit Reasons: annual exam Allergies No Known Allergies [No Known Allergies*] Allergy (Verified 10/02/24 15:14) Medication List - Last Reconciled 10/02/24 by Ozzie Rivas PA-C chlorthalidone 50 mg PO DAILY cholecalciferol (vitamin D3) 50 mcg PO DAILY cyclobenzaprine 10 mg PO BEDTIME PRN 30 days fluticasone propionate 50 mcg/actuation (Flonase Allergy Relief) 2 sprays intranasal DAILY 30 days folic acid 1 mg PO DAILY iron,carbonyl-vitamin C 65 mg iron- 125 mg (Vitron-C) 1 tab PO BEDTIME loratadine (Claritin) 10 mg PO DAILY 90 days polyethylene glycol 3350 (Miralax) 17 grams PO DAILY 14 days prazosin 2 mg PO BEDTIME 90 days sertraline 200 mg (2 x 100 mg) PO DAILY 90 days Tobacco use date assessed: 05/11/22 [facility] annual exam HPI Details Patient is a 54-year-old female here today for annual physical. Patient has a past medical history significant for hypertension, hyperlipidemia chronic low back pain, PTSD, MDD. .. PTSD: Patient is followed by psychiatrist and mental health therapist whom managers her mental health medications. She still has prolonged grief symptoms secondary to traumatic experience. She does report her father this past summer that has caused her more depression and grief. .. : Hypertension: Blood pressure acceptable today in office. She continues on chlorthalidone. Have noted slight hypokalemia likely secondary to her diuretic. She continues to be adherent to her blood pressure medication. Does not monitor blood pressure at home. Otherwise denies any chest discomfort, headaches, vision issues. .. Obesity: She did see the weight management program here in [place] and loss a few lb though was not a candidate for bariatric surgery.. She admits to not being to physically active. She unfortunately gained weight back. She is somewhat discouraged at this time. Colonoscopy: Done in [address] Bee normal repeat 7 years due to family history colon cancer Vaccines: Up-to-date with COVID vaccine, UTD Tdap and FLu vaccine.. Mammogram: Has upcoming appointment for mammogram screening COMPLIANCE TESTER: Had a partial hysterectomy. ( linn COMPLIANCE TESTER) Reviewed labs with patient and noted a microcytic anemia. She reports she has a thalassemia. Is now getting B12 injections to her certified scrum master.. Laboratory Tests 09/14/24 15:00 Potassium 3.2 L Random Glucose 123 H [facility] Medical History Lower back pain UTI (urinary tract infection) Back pain History of headache Elevated cholesterol HTN (hypertension) Surgical History History of colonoscopy Hx of hysterectomy Hx of laparoscopy Hx of section Family History Father Unknown family medical history Mother Hx of type 2 diabetes mellitus Family history of high blood pressure Hx of gallstones History of ulcer disease Larynx cancer Brother Prostate cancer Social History Housing: House Alcohol intake: former Patient Tobacco Use Status: Never used Tobacco e-Cigarette/Vaping Use: Never Used Current occupational status: retired and disabled Cognitive needs: No Hearing needs: No Vision needs: Yes Questionnaire PHQ-9 Over the last 2 weeks, how often have you been bothered by any of the following problems? 1. Little interest or pleasure in doing things: several days 2. Feeling down, depressed, or hopeless: several days 3. Trouble falling or staying asleep, or sleeping too much: several days 4. Feeling tired or having little energy: several days 5. Poor appetite or overeating: several days 6. Feeling bad about yourself - or that you are a failure or have let yourself or your family down: several days 7. Trouble concentrating on things, such as reading the newspaper or watching television: several days 8. Moving or speaking so slowly that other people could have noticed. Or the opposite - being so fidgety or restless that you have been moving around a lot more than usual: several days 9. Thoughts that you would be better off or of hurting yourself in some way: not at all Total score: 8 Depression Screening Interpretation: Positive Depression Screening Follow-up: Existing condition and In treatment Depression Screening Done: Yes 78028 - PHQ-9 Billing: Yes Source: Developed by Drs. Baljeet Clemente, Tatyana Olmstead, Jose Andrews and colleagues, with an educational juan from [employer]. Thrive Questionnaire Date Thrive assessed: 09/28/23 I am a: Patient What is your living situation today?: I have a place to live, but I am worried about losing it in the future Within the past 12 months, did the food you bought not last and you didn't have the money to get more?: Never true Within the past 12 months, did you worry whether your food would run out before you got money to buy more?: Never true Do you have trouble paying for medicines?: No Do you have trouble getting transportation to medical appointments?: No Do you have trouble paying your heating and electricity bill?: No Do you have trouble taking care of your child, family member or friend?: I choose not to answer this question Do you have trouble with day-to-day activities such as bathing, preparing meals, shopping, managing finances, etc.?: I choose not to answer this question Are you currently unemployed and looking for a job?: I choose not to answer this question Are you interested in more education?: I choose not to answer this question Please select the resources that you would like help with: None Currently or been in a relationship where the following occur: No concerns reported and I choose not to answer THRIVE Score: 1 AUDIT C Alcohol Use Questionnaire (AUDIT-C) 1. How often do you have a drink containing alcohol?: Never Total Score: 0 DESTINEE-7 AMB Questionnaire DESTINEE-7 Date DESTINEE - 7 assessed: 09/28/23 Feeling nervous, anxious, or on edge: 2 = More than half the days Not being able to stop or control worryin = Several days Worrying too much about different things: 0 = Not at all Trouble relaxin = Not at all Being so restless that it is hard to sit still: 0 = Not at all Becoming easily annoyed or irritable: 0 = Not at all Feeling afraid as if something awful might happen: 0 = Not at all Total DESTINEE-7 score (0-4 normal; 5-9 mild; 10-14 moderate; 15-21 severe): 3 Source: Developed by Drs. Baljeet Clemente, Tatyana Olmstead, Jose Andrews and colleagues, with an educational juan from [employer] DESTINEE-7 Assessment Billing DESTINEE-7 Assessment Tool: DESTINEE-7 Assessment 33991 Review of Systems Const Denies body aches, Denies chills, Denies excessive sweating, Denies fatigue, Denies fever(s) and Denies headache(s) Eyes Denies blurry vision ENT Denies dysphagia, Denies vertigo, Denies dizziness, Denies headache(s), Denies hearing loss and Denies tinnitus Card Denies chest pain, Denies chest pain with activity, Denies syncope, Denies irregular heart rhythm and Denies dyspnea Resp Denies chest congestion, Denies cough, Denies hemoptysis, Denies dyspnea and Denies wheezing GI Denies abdominal pain, Denies melena, Denies hematochezia, Denies coffee ground emesis, Denies dysphagia, Denies diarrhea, Denies nausea and Denies vomiting Denies urinary frequency, Denies dysuria, Denies urinary hesitancy and Denies urinary urgency Musc Denies arthralgias, Denies limited range of motion, Denies muscle cramps and Denies muscle weakness Skin/Breast Denies rash and Denies skin ulcer Neuro Denies Abnormal speech present, Denies confusion, Denies vertigo, Denies dizziness, Denies syncope, Denies headache(s), Denies memory loss and Denies seizure-like activity Psych Denies anxiety, Denies confusion, Denies depression, Denies memory loss, Denies panic attacks and Denies paranoia Endo Denies excessive sweating, Denies fatigue, Denies flushing, Denies polydipsia and Denies polyuria Aller/Immun Denies wheezing Physical exam (Primary Care) Vital Signs: Last Vital Signs Pulse 76 10/02/24 14:53 BP 128/80 10/02/24 14:53 Pulse Ox 95 10/02/24 14:53 Oxygen Delivery Method Room Air 10/02/24 14:53 BMI result Body Mass Index 36.3 BMI Assessment/Plan discussion: High BMI High, discussed plan: lifestyle, weight reduction, dietary and physical activity Tobacco/Smoking Status: Tobacco use Status Tobacco use date assessed 05/11/22 10/02/24 14:53 Patient Tobacco Use Status Never used Tobacco 10/02/24 14:53 e-Cigarette/Vaping Use Never Used 10/02/24 14:53 Depression Screening Interpretation: Positive Depression Screening Follow-up: Existing condition and In treatment Thrive Assessment: Date of Thrive Assessment Date Thrive assessed 09/28/23 10/02/24 14:53 Currently or been in a relationship where the following occur: No concerns reported and I choose not to answer Const General: cooperative, comfortable, no acute distress, alert and awake; No confusion Orientation/consciousness: oriented to person, oriented to place, patient oriented x3 and No confusion HENMT Head: Yes normocephalic Ears: external ears normal and TM's normal bilaterally Face and sinus: No sinus tenderness Mouth: Normal oral and palatal mucosa present and tongue normal Teeth and gingiva: dentition normal and gingiva normal Throat: Yes posterior oropharynx normal, Yes tonsils normal and Yes uvula midline Eyes Conjunctivae: conjunctivae normal Sclerae: sclerae normal Pupils: Equal, round and reactive pupils present EOM: EOMs intact bilaterally Direct Ophthalmoscopy: No no photophobia Neck Neck: Yes no lymphadenopathy, No tender and Yes no JVD Thyroid: Thyroid normal Carotids: no bruits Chest Chest palpation & inspection: no tenderness Resp Effort & Inspection: normal respiratory effort, no audible wheezes, not labored and no stridor Auscultation: no crackles, no rales, no rhonchi and no wheezes Cardio Jugular venous distension: no JVD Rate: regular rate, not bradycardic and not tachycardic Rhythm: regular rhythm Bruits: no carotid bruits Peripheral pulses: Peripheral pulses 2+ throughout GI Inspection: Yes normal to inspection, No abdominal wall ecchymosis and No visible herniation Palpation (GI): Soft to palpation, nontender, no guarding, not rigid and No hepatosplenomegaly present Auscultation: normoactive bowel sounds General: Yes no CVA tenderness Back/Spine/Pelvis Back: no CVA tenderness and No back tenderness Cervical Spine: cervical ROM normal Thoracic/Lumbar Spine: thoracic and lumbar spine normal to inspection, straight leg raise negative bilaterally, No thoraco-lumbar ROM limited and No lumbar spinal tenderness Skin Lesions: no lesions Rashes: no rashes Wounds: no wounds Neuro General: oriented to person, oriented to place, patient oriented x3, CN's II-XI intact bilaterally and No confusion Cranial nerves: Yes Equal, round and reactive pupils present and Yes Normal accommodation reflex present Cognition (Neuro): normal cognition Speech: No Abnormal speech present Gait exam (Neuro): Normal gait present Motor exam (neuro): 5/5 motor strength present throughout Extrem Right upper extremity: full ROM; no cyanosis Left upper extremity: full ROM; no cyanosis Right lower extremity: no edema Left lower extremity: no edema Psych Appearance: grossly normal Mental Status: mental status grossly normal Affect: normal affect Attitude: cooperative Thought process: Normal thought process present Office Procedures Flu Questionnaire Does the patient have a severe egg allergy?: No Does the patient have severe life threatening allergies?: No Does the patient have a fever or illness today?: No Has the patient ever had Guillain-Worthington Syndrome?: No Has the patient ever had any past reaction to a flu shot?: No Immunizations Fluarix Triv [id number] (PF) 45 mcg (15 mcg x 3)/0.5 mL IM syringe Performing Provider: Ozzie Rivas PA-C [facility] Administered by: CRESENCIO Schwartz on 10/02/24 15:04 Dose Route Admin Location Dispensed Lot Number Expiration Date [place] [employer] 0.5 mL IM Left Deltoid 0.5 mL [id number] 05/27/25 [id number] [employer] VIS Given Date VIS Provided VIS Publication Date 10/02/24 Single Vaccine 21 Eligibility Eligibility Date Funding Source Not [facility] Eligible 10/02/24 Private Coding Level of Care Code Est Pt Prev Care 40-64y(40141) Diagnoses Annual physical exam Z00.00 Bipolar 1 disorder F31.9 Microcytic anemia D50.9 Hypertension, unspecified type I10 Hypertension type: unspecified Class 1 obesity E66.811 Hypokalemia E87.6 Benign paroxysmal positional vertigo due to bilateral vestibular disorder H81.13 Laterality: bilateral Additional Codes DESTINEE-7 Assessment Billing - DESTINEE-7 Assessment Tool: DESTINEE-7 Assessment 59036 ([id number]) PHQ-9 - 87135 - PHQ-9 Billing: Yes ([id number]) Assessment & Plan Assessment & Plan (1) Annual physical exam: Code(s): Z00.00 - Encounter for general adult medical examination without abnormal findings Category: Medical Plan: As per HPI (2) Bipolar 1 disorder: Code(s): F31.9 - Bipolar disorder, unspecified Category: Medical Plan: Patient continues to follow psychiatry and a mental health therapist. (3) Microcytic anemia: Code(s): D50.9 - Iron deficiency anemia, unspecified Category: Medical Plan: Patient continues to follow Hematology. Continues on supplemental vitamins to help increase her blood levels. She does report her energy is better since starting vitamins. (4) HTN (hypertension): Code(s): I10 - Essential (primary) hypertension Category: Medical Qualifiers: Hypertension type: unspecified Qualified Code(s): I10 - Essential (primary) hypertension Plan: Patient's blood pressure acceptable today in office. Will continue her current dose of chlorthalidone. Of note have noted a low potassium which will be supplemented with diet. Goal blood pressures to remain below 140/90 (5) Class 1 obesity: Code(s): E66.811 - Obesity, class 1 Category: Medical Plan: Patient does understand her BMI is over 35 and will work on being more physically active and adapting to better eating habits to reduce her weight (6) Hypokalemia: Code(s): E87.6 - Hypokalemia Category: Medical Plan: Will try to supplement with potassium rich foods to increase her potassium. (7) BPPV (benign paroxysmal positional vertigo): Code(s): H81.10 - Benign paroxysmal vertigo, unspecified ear Category: Medical Qualifiers: Laterality: bilateral Qualified Code(s): H81.13 - Benign paroxysmal vertigo, bilateral Plan: Patient does have signs and symptoms of benign paroxysmal positional vertigo. We did discuss the possibility of starting vestibular therapy with physical therapy office. Did advise on Flower maneuvers to be done at home. Orders: Orders Influenza [id number] Immunization 10/02/24 Z23 - Encounter for immunization Patient Instructions: Goal: Blood pressure to remain below 140/90 Barriers: Adherence to physical activity and healthy eating habits
[2024-10-02 14:53] VITALS: BP 128/80; PULSE 76; O2SAT 95; BMI 36.3
== END 2024-10-02 15:44 | disposition home or self-care (01) ==
LOC: HO.HMCH 14:50
PROVIDERS: PCP Physician Assistant; Visit Provider Physician Assistant
DX: Z00.00 Encounter for general adult medical examination without abnormal findings (principal); F31.9 Bipolar disorder, unspecified; E66.811 Obesity, class 1; Z68.36 Body mass index [BMI] 36.0-36.9, adult; D50.9 Iron deficiency anemia, unspecified; I10 Essential (primary) hypertension; E87.6 Hypokalemia; H81.13 Benign paroxysmal vertigo, bilateral

== ENCOUNTER → 2024-10-02 14:49 | Outpatient (BNVA) | payer OTHER, SELFPAY | PROVIDERS: PCP Physician Assistant; Visit Provider Physician Assistant | DX: Z00.01 Encounter for general adult medical examination with abnormal findings (principal); F31.9 Bipolar disorder, unspecified; D50.9 Iron deficiency anemia, unspecified; I10 Essential (primary) hypertension; E66.811 Obesity, class 1; Z68.36 Body mass index [BMI] 36.0-36.9, adult; E87.6 Hypokalemia; H81.13 Benign paroxysmal vertigo, bilateral; Z23 Encounter for immunization | CPT/HCPCS: 90471; 90656; 96127 ==

== ENCOUNTER 2024-10-29 07:54 | Outpatient (REF) | payer OTHER, SELFPAY ==
--- NOTE | ~2024-10-29 | MM_ITS ---
EXAMINATION: MM SCREENING DIGITAL BREAST TOMOSYNTHESIS, BILATERAL CLINICAL INFORMATION: Screening. Asymptomatic. COMPARISON: Mammography: Comparison is made with available priors TECHNIQUE: Digital breast mammography with tomosynthesis is performed in both the craniocaudal and mediolateral oblique views along with computer-aided detection (CAD). FINDINGS: There are scattered areas of fibroglandular density (ACR BI-RADS breast composition Category b). There are no significant masses, abnormal calcifications, or other abnormalities. MM/MM tomosynthesis screening BI IMPRESSION: No mammographic evidence of malignancy. ASSESSMENT: BI-RADS BI-RADS 1 - Negative RECOMMENDATION: Routine annual mammography screening. 1 year F/U This examination should not preclude the clinical evaluation of a suspicious palpable abnormality. This patient's information was entered into a reminder system with a target due date for their next mammogram. Electronically signed by: Connie Briceno DO 11/02/2024 10:31 AM [facility]
== END 2024-10-29 07:55 | disposition home or self-care (01) ==
LOC: HO.MAMMO 07:54
PROVIDERS: PCP Physician Assistant; Visit Provider Physician Assistant
DX: Z12.31 Encounter for screening mammogram for malignant neoplasm of breast (principal)
CPT/HCPCS: 77063; 77067

== ENCOUNTER → 2024-10-29 08:00 | Outpatient (BNV) | payer OTHER, SELFPAY | PROVIDERS: PCP Physician Assistant; Visit Provider Internal Medicine | DX: Z12.31 Encounter for screening mammogram for malignant neoplasm of breast (principal) | CPT/HCPCS: 77063; 77067 ==

== ENCOUNTER 2024-11-14 15:51 | Outpatient (REF) | payer MEDICARE, SELFPAY ==
[2024-11-14 17:08] LABS: Appearance Urine Clear; Color Urine Dark Yellow; Glucose Urine UA Negative (Negative); Leukocyte Esterase Urine Negative (Negative); Nitrite Urine Negative (Negative); PH 6.5 (5.0-9.0); Specific Gravity - Urine 1.025 (1.005-1.025); Urine Blood Negative (Negative); Urine Ketones Negative (Negative); Urine Protein Negative (Neg-Trace)
== END 2024-11-14 15:52 | disposition home or self-care (01) ==
LOC: HO.LAB 15:51
PROVIDERS: PCP Physician Assistant; Visit Provider Physician Assistant
DX: N39.0 Urinary tract infection, site not specified (principal); D50.9 Iron deficiency anemia, unspecified
CPT/HCPCS: 81003; 86900; 86901

== ENCOUNTER 2025-07-10 07:56 | Outpatient (REF) | payer MEDICARE, SELFPAY ==
--- OUTSIDE RECORDS SUMMARY | 2025-07-10 07:58 | XMS_ITS | Clinical Summary ---
Author Organization [facility] Address [address] [place] [address] Care Team Providers Care Mechanical Drawing Teacher Name Role Phone Olivia Briceño Primary Care Provider Un available Active Problems Problem Noted Date Diagnosed Date Bilateral impacted cerumen 04/22/2021 Hypertension 04/22/2021 Benign paroxysmal positional vertigo of right ea r 04/22/2021 Social History Tobacco Use Types Packs/Day Years Used Date Smoking Tobacco: Never Assessed Comments Unknown Sex and Gender Information Value Date Recorded Sex Assigned at Not on file Legal Sex Female 9:31 PM EDT Gender Identity Not on file Sexual Orientation Not on file Plan of Treatment Health Maintenance Due Date Last Done Comments Hepatitis C Screening 1970 Pap Smear 1986 DTaP/Tdap/Td (1 - Tdap) 1988 Hep B (1 of 3 - 19+ 3-dose series) 1989 Mammogram/Breast Imaging 2010 Colon Cancer Screening 2015 Pneumococcal 50+ years (1 of 1 - PCV) 2020 Zoster (Shingrix) (1 of 2) 2020 COVID-19 Vaccine (1 - 2023-2 5 season) 2024 Influenza (#1) 2025 HPV Vaccine (No Doses Required) Completed Hep A Aged Out No longer eligi ble based on patient's age to complete this topic Hib Aged Out No longer eligi ble based on patient's age to complete this topic Meningococcal ACWY Aged Out No longer eligible based on patient's age to complete this topic Care Teams Mechanical Drawing Teacher Relationship Specialty Start Date End Date Olivia Briceño PCP - General 07/04/23
[2025-07-10 09:30] LABS: Cholesterol 196 mg/dL (<200); HDL Cholesterol 38 mg/dL (>40); Triglycerides 89 mg/dL (<150)
== END 2025-07-10 07:57 | disposition home or self-care (01) ==
LOC: HO.LAB 07:56
PROVIDERS: Visit Provider Physician Assistant
DX: E78.00 Pure hypercholesterolemia, unspecified (principal)
CPT/HCPCS: 36415; 80061

== ENCOUNTER 2025-10-07 09:09 | Outpatient (AMB) | payer OTHER, SELFPAY ==
--- NOTE | 2025-10-07 09:16 | A.OFFPC_ITS ---
Vital Signs 10/07/25 09:18 Height 5 ft 4 in Weight 207 lb 6 oz BMI 35.6 BP 130/68 Blood Pressure Location Lt brachial Position Sitting Pulse 75 Pulse Source Pulse Oximeter Temp 96.8 F Temp Source Temporal Artery Scan Pulse Oximetry (%) 99 Oxygen Delivery Method Room Air Intake Visit Reasons: Annual Exam Intake Note: Patient is here today for a physical. Gift Officer Required: No Executor Of Estate: Not Required per policy Accompanied by: Self / Same As Patient Allergies No Known Allergies (No Known Allergies*) Allergy (Verified 10/07/25 09:49) Medication List - Last Reconciled 10/07/25 by Ozzie Rivas PA-C chlorthalidone 50 mg PO DAILY cholecalciferol (vitamin D3) 50 mcg PO DAILY cyclobenzaprine 10 mg PO BEDTIME PRN 30 days fluticasone propionate 50 mcg/actuation (Flonase Allergy Relief) 2 sprays intranasal DAILY 30 days folic acid 1 mg PO DAILY ibuprofen 600 mg PO Q8H PRN iron,carbonyl-vitamin C 65 mg iron- 125 mg (Vitron-C) 1 tab PO BEDTIME loratadine (Claritin) 10 mg PO DAILY 90 days polyethylene glycol 3350 (Miralax) 17 grams PO DAILY 14 days prazosin 2 mg PO BEDTIME 90 days sertraline 200 mg (2 x 100 mg) PO DAILY 90 days Tobacco use date assessed: 10/07/25 Dental Screening Dental Screen Date: 10/07/25 Did you have a dental visit in the last 12 months?: Yes Did you have a dental problem in the last 6 months where you did not have access to dental care?: No Was dental information given to patient?: Patient has dentist HPI Annual Exam HPI Details Patient is a 55-year-old female here today for annual physical. Patient has a past medical history significant for hypertension, hyperlipidemia chronic low back pain, PTSD, MDD. .. PTSD: Patient is followed by psychiatrist and mental health therapist whom managers her mental health medications. She still has prolonged grief symptoms secondary to traumatic experience. .. : Hypertension: Blood pressure acceptable today in office. She continues on chlorthalidone. Have noted slight hypokalemia likely secondary to her diuretic. She continues to be adherent to her blood pressure medication. Does not monitor blood pressure at home. Otherwise denies any chest discomfort, headaches, vision issues. .. class 2 Obesity: She has been able to lose weight with dietary modification. She was previously being seen by the weight loss clinic here in [place] though did not want to do surgery. .. Microcytic anemia: Patient followed by Hematology , she continues on B12 injections which she reports helped her energy. She was told previously she may have a thalassemia Colonoscopy: Done in [address] Bee normal repeat 7 years due to family history colon cancer Vaccines: Up-to-date with COVID vaccine, UTD Tdap. Considering Shingrex Needs Flu vaccine.. Mammogram: DONE 10/2024- BIR[facility] 1 - Has upcoming appointment for mammogram screening DAYCARE ASSISTANT: Had a partial hysterectomy. ( [place] DAYCARE ASSISTANT) . Laboratory Tests 09/14/24 15:00 Potassium 3.2 L Random Glucose 123 H Laboratory Tests 07/01/25 07/10/25 09/02/25 14:24 08:05 08:35 Hgb 10.6 L 11.4 L Creatinine 0.71 Cholesterol 196 LDL Cholesterol, C alc 141 H PFSH Medical History Lower back pain UTI (urinary tract infection) Back pain History of headache Elevated cholesterol HTN (hypertension) Surgical History History of colonoscopy Hx of hysterectomy Hx of laparoscopy Hx of section Family History Father Unknown family medical history Substance use disorder Mother Hx of type 2 diabetes mellitus Family history of high blood pressure Hx of gallstones History of ulcer disease Larynx cancer Brother Prostate cancer Other Mental health disorder Social History Housing: House Alcohol intake: current Alcohol intake frequency: holidays/special occasions only Patient Tobacco Use Status: Never used Tobacco e-Cigarette/Vaping Use: Never Used Second Hand Smoke Exposure: No service: No Current occupational status: retired and disabled Cognitive needs: No Hearing needs: No Vision needs: Yes Questionnaire PHQ-9 Over the last 2 weeks, how often have you been bothered by any of the following problems? 1. Little interest or pleasure in doing things: nearly every day 2. Feeling down, depressed, or hopeless: more than half the days 3. Trouble falling or staying asleep, or sleeping too much: more than half the days 4. Feeling tired or having little energy: more than half the days 5. Poor appetite or overeating: several days 6. Feeling bad about yourself - or that you are a failure or have let yourself or your family down: nearly every day 7. Trouble concentrating on things, such as reading the newspaper or watching television: several days 8. Moving or speaking so slowly that other people could have noticed. Or the opposite - being so fidgety or restless that you have been moving around a lot more than usual: more than half the days 9. Thoughts that you would be better off or of hurting yourself in some way: not at all Total score: 16 Depression Screening Interpretation: Positive Depression Screening Follow-up: Existing condition and In treatment Depression Screening Done: Yes 75733 - PHQ-9 Billing: Yes Source: Developed by Drs. Baljeet Clemente, Tatyana Olmstead, Jose Andrews and colleagues, with an educational juan from [employer]. Thrive Questionnaire Date Thrive assessed: 10/07/25 I am a: Patient What is your living situation today?: I have a steady place to live Within the past 12 months, did the food you bought not last and you didn't have the money to get more?: Never true Within the past 12 months, did you worry whether your food would run out before you got money to buy more?: Never true Do you have trouble paying for medicines?: No Do you have trouble getting transportation to medical appointments?: No Do you have trouble paying your heating and electricity bill?: No Do you have trouble taking care of your child, family member or friend?: No Do you have trouble with day-to-day activities such as bathing, preparing meals, shopping, managing finances, etc.?: No Are you currently unemployed and looking for a job?: No Are you interested in more education?: No Please select the resources that you would like help with: None Currently or been in a relationship where the following occur: No concerns reported THRIVE Score: 0 AUDIT C Alcohol Use Questionnaire (AUDIT-C) 1. How often do you have a drink containing alcohol?: Never 3. How often do you have six or more drinks on one occasion?: Never Total Score: 0 DESTINEE-7 AMB Questionnaire DESTINEE-7 Date DESTINEE - 7 assessed: 10/07/25 Feeling nervous, anxious, or on edge: 3 = Nearly every day Not being able to stop or control worryin = More than half the days Worrying too much about different things: 3 = Nearly every day Trouble relaxin = More than half the days Being so restless that it is hard to sit still: 1 = Several days Becoming easily annoyed or irritable: 3 = Nearly every day Feeling afraid as if something awful might happen: 3 = Nearly every day Total DESTINEE-7 score (0-4 normal; 5-9 mild; 10-14 moderate; 15-21 severe): 17 Source: Developed by Drs. Baljeet Clemente, Tatyana Olmstead, Jose Andrews and colleagues, with an educational juan from [employer]. DESTINEE-7 Assessment Billing DESTINEE-7 Assessment Tool: DESTINEE-7 Assessment 65224 Review of Systems Const Denies body aches, Denies chills, Denies excessive sweating, Denies fatigue, Denies fever(s) and Denies headache(s) Eyes Denies blurry vision ENT Denies dysphagia, Denies vertigo, Denies dizziness, Denies headache(s), Denies hearing loss and Denies tinnitus Card Denies chest pain, Denies chest pain with activity, Denies syncope, Denies irregular heart rhythm and Denies dyspnea Resp Denies chest congestion, Denies cough, Denies hemoptysis, Denies dyspnea and Denies wheezing GI Denies abdominal pain, Denies melena, Denies hematochezia, Denies coffee ground emesis, Denies dysphagia, Denies diarrhea, Denies nausea and Denies vomiting Denies urinary frequency, Denies dysuria, Denies urinary hesitancy and Denies urinary urgency Musc Denies arthralgias, Denies limited range of motion, Denies muscle cramps and Denies muscle weakness Skin/Breast Denies rash and Denies skin ulcer Neuro Denies Abnormal speech present, Denies confusion, Denies vertigo, Denies dizziness, Denies syncope, Denies headache(s), Denies memory loss and Denies seizure-like activity Psych Denies anxiety, Denies confusion, Denies depression, Denies memory loss, Denies panic attacks and Denies paranoia Endo Denies excessive sweating, Denies fatigue, Denies flushing, Denies polydipsia and Denies polyuria Aller/Immun Denies wheezing Physical exam (Primary Care) Vital Signs: Last Vital Signs Temp 96.8 F 10/07/25 09:18 Pulse 75 10/07/25 09:18 BP 130/68 10/07/25 09:18 Pulse Ox 99 10/07/25 09:18 Oxygen Delivery Method Room Air 10/07/25 09:18 BMI result Body Mass Index 35.6 Tobacco/Smoking Status: Tobacco use Status Tobacco use date assessed 10/07/25 10/07/25 09:39 Patient Tobacco Use Status Never used Tobacco 10/07/25 09:39 e-Cigarette/Vaping Use Never Used 10/07/25 09:39 PHQ-9: PHQ-9 Score PHQ-9: Total score 16 10/07/25 10:21 Depression Screening Interpretation: Positive Depression Screening Follow-up: Existing condition and In treatment Thrive Assessment: Date of Thrive Assessment Date Thrive assessed 10/07/25 10/07/25 09:39 Currently or been in a relationship where the following occur: No concerns reported Const General: cooperative, comfortable, no acute distress, alert and awake; No confusion Orientation/consciousness: oriented to person, oriented to place, patient oriented x3 and No confusion HENMT Head: Yes normocephalic Ears: external ears normal and TM's normal bilaterally Face and sinus: No sinus tenderness Mouth: Normal oral and palatal mucosa present and tongue normal Teeth and gingiva: dentition normal and gingiva normal Throat: Yes posterior oropharynx normal, Yes tonsils normal and Yes uvula midline Eyes Conjunctivae: conjunctivae normal Sclerae: sclerae normal Pupils: Equal, round and reactive pupils present EOM: EOMs intact bilaterally Direct Ophthalmoscopy: No no photophobia Neck Neck: Yes no lymphadenopathy, No tender and Yes no JVD Thyroid: Thyroid normal Carotids: no bruits Chest Chest palpation & inspection: no tenderness Resp Effort & Inspection: normal respiratory effort, no audible wheezes, not labored and no stridor Auscultation: no crackles, no rales, no rhonchi and no wheezes Cardio Jugular venous distension: no JVD Rate: regular rate, not bradycardic and not tachycardic Rhythm: regular rhythm Bruits: no carotid bruits Peripheral pulses: Peripheral pulses 2+ throughout GI Inspection: Yes normal to inspection, No abdominal wall ecchymosis and No visible herniation Palpation (GI): Soft to palpation, nontender, no guarding, not rigid and No hepatosplenomegaly present Auscultation: normoactive bowel sounds General: Yes no CVA tenderness Back/Spine/Pelvis Back: no CVA tenderness and No back tenderness Cervical Spine: cervical ROM normal Thoracic/Lumbar Spine: thoracic and lumbar spine normal to inspection, straight leg raise negative bilaterally, No thoraco-lumbar ROM limited and No lumbar spinal tenderness Skin Lesions: no lesions Rashes: no rashes Wounds: no wounds Neuro General: oriented to person, oriented to place, patient oriented x3, CN's II-XI intact bilaterally and No confusion Cranial nerves: Yes Equal, round and reactive pupils present and Yes Normal accommodation reflex present Cognition (Neuro): normal cognition Speech: No Abnormal speech present Gait exam (Neuro): Normal gait present Motor exam (neuro): 5/5 motor strength present throughout Extrem Right upper extremity: full ROM; no cyanosis Left upper extremity: full ROM; no cyanosis Right lower extremity: no edema Left lower extremity: no edema Psych Appearance: grossly normal Mental Status: mental status grossly normal Affect: normal affect Attitude: cooperative Thought process: Normal thought process present Office Procedures Flu Questionnaire Does the patient have a severe egg allergy?: No Does the patient have severe life threatening allergies?: No Does the patient have a fever or illness today?: No Has the patient ever had Guillain-H[place] Syndrome?: No Has the patient ever had any past reaction to a flu shot?: No Immunizations Fluarix [id number] (PF) 45 mcg (15 mcg x 3)/0.5 mL IM syringe Performing Provider: Ozzie Rivas PA-C [facility] Administered by: KALEE Olivera on 10/07/25 10:24 Dose Route Admin Location Dispensed Lot Number Expiration Date [facility] Pals Specialist 0.5 mL IM Left Deltoid 0.5 mL [id number] 05/27/26 [id number] [employer] VIS Given Date VIS Provided VIS Publication Date 10/07/25 Single Vaccine 24 Eligibility Eligibility Date Funding Source Not [facility] Eligible 10/07/25 Private Coding Level of Care Code Est Pt Prev Care 40-64y(08302) Diagnoses Annual physical exam Z00.00 Bipolar 1 disorder F31.9 Microcytic anemia D50.9 Hypertension, unspecified type I10 Hypertension type: unspecified Class 1 obesity E66.811 Varicella vaccination status unknown Z78.9 Additional Codes DESTINEE-7 Assessment Billing - DESTINEE-7 Assessment Tool: DESTINEE-7 Assessment 94858 ([id number]) PHQ-9 - 77640 - PHQ-9 Billing: Yes ([id number]) Assessment & Plan Assessment & Plan (1) Annual physical exam: Code(s): Z00.00 - Encounter for general adult medical examination without abnormal findings Category: Medical Plan: As per HPI (2) Bipolar 1 disorder: Code(s): F31.9 - Bipolar disorder, unspecified Category: Medical Plan: Patient's destinee 7 and PHQ-9 score positive for both anxiety and depression which has been existing condition for her. She continues to speak with a mental health therapist in his psychiatrist whom manage her mental health medication. Patient continues to follow psychiatry and a mental health therapist. (3) Microcytic anemia: Code(s): D50.9 - Iron deficiency anemia, unspecified Category: Medical Plan: Patient continues to follow Hematology. Continues on supplemental vitamins to help increase her blood levels. She does report her energy is better since starting vitamins. (4) HTN (hypertension): Code(s): I10 - Essential (primary) hypertension Category: Medical Qualifiers: Hypertension type: unspecified Qualified Code(s): I10 - Essential (primary) hypertension Plan: Patient's blood pressure acceptable today in office. Will continue her current dose of chlorthalidone. Of note have noted a low potassium which will be supplemented with diet. Goal blood pressures to remain below 140/90 (5) Class 1 obesity: Code(s): E66.811 - Obesity, class 1 Category: Medical Plan: Has lost a bit of weight since last office visit.. Patient does understand her BMI is over 35 and will work on being more physically active and adapting to better eating habits to reduce her weight (6) Varicella vaccination status unknown: Code(s): Z78.9 - Other specified health status Category: Medical Plan: Patient unclear if she has had chickenpox as a child, will check IgG antibodies. Orders: Orders Varicella IgG Antibody 10/07/25 Z78.9 - Other specified health status Complete Blood Count no Diff 10/07/25 I10 - Essential (primary) hypertension Lipid Panel 10/07/25 E78.00 - Pure hypercholesterolemia, unspecified Comprehensive [place]. Panel Fast 10/07/25 I10 - Essential (primary) hypertension Influenza [id number] Immunization 10/07/25 Z23 - Encounter for immunization
[2025-10-07 09:18] VITALS: BP 130/68; PULSE 75; TEMP 36; O2SAT 99; BMI 35.6
--- OUTSIDE RECORDS SUMMARY | 2025-10-07 09:57 | XMS_ITS | Clinical Summary ---
Author Organization [address] [facility] Address [address] [place] [address] Phone Care Team Providers Care Extractor Puller Name Role Phone Ozzie Rivas Primary Care Provider Allergies No known active allergies Medications Vraylar 1.5 mg capsule Take 1 capsule (1.5 mg total) by mouth 1 (one) time each day. 5 Active clindamycin (CLEOCIN) 150 mg capsule TAKE 1 CAPSULE 3 TIMES A DAY UNTIL FINISHED 5 Active cyclobenzaprine (FLEXERIL) 10 mg tablet Take 1 tablet (10 mg total) by mouth at bedtime as needed for muscle spasms. 5 Active fluticasone propionate (FLONASE) 50 mcg/actuation nasal spray INHALE 2 SPRAYS INTRANASALLY DAILY FOR ALLERGIES FOR 30 DAYS Active folic acid (FOLVITE) 1 mg tablet 5 Active meloxicam (MOBIC) 15 mg tablet TAKE 1 TABLET BY MOUTH ONCE DAILY NEEDED FOR PAIN TAKE WITH FOOD DO NOT TAKE ADDITIONAL NSAIDS 5 Active sertraline (ZOLOFT) 100 mg tablet Take 2 tablets (200 mg total) by mouth 1 (one) time each day. 4 Active prazosin (MINIPRESS) 2 mg capsule TAKE 1 CAPSULE BY MOUTH EVERY DAY AT BEDTIME FOR 90 DAYS 4 Active Encounters Date Type Department Care Team Description 08/19/2025 9:30 AM EDT Office Visit Orthopedic Surgery [facility] [address] [place] [phone] Dago Moss, DPM Plantar fascial fibromatosis from Last 3 Months Social History Tobacco Use Types Packs/Day Years Used Date Smoking Tobacco: Never Assessed Comments Unknown Sex and Gender Information Value Date Recorded Sex Assigned at Not on file Legal Sex Female 7:55 AM EDT Gender Identity Not on file Sexual Orientation Not on file Plan of Treatment Upcoming Encounters Date Type Department Care Team (Late st Contact Info) Description 08/18/2026 8:15 AM EDT Office Visit Orthopedic Surgery - [place] [address] [phone] Dago Moss, DPM [address] [phone] Health Maintenance Due Date Last Done Comments Breast Cancer Screening 1970 Colorectal Cancer Screening: Colonoscopy 1970 Hepatitis B Vaccines (1 of 3 - 19+ 3-dose series) 1989 Cervical Cancer Screening: P ap Smear 1991 Pneumococcal Vaccine: 50+ Years (1 of 1 - PCV) 2020 Zoster Vaccines (1 of 2) 2020 Depression Screening 11/28/2024 Cholesterol Screening (Lipid Panel) 03/12/2025 HIV Screening 03/12/2025 Hepatitis C Screening 03/12/2025 Medicare Annual Wellness Visit 03/12/2025 Social Influencers of Health Screening 03/12/2025 COVID-19 Vaccine (4 - 2024-2 6 season) 2025 04/27/2022, 09/14/2021, 08/08/2021 Influenza Vaccine (#1) 2025 , 09/28/2023, 09/14/2021 Hypertension/CHF/CAD Annual BMP Blood Test 08/19/2025 DTaP,Tdap,and Td Vaccines (2 - Td or Tdap) 2032 2022 RSV Immunization Adult Patients (1 - 1-dose 75+ series) 2045 HIB Vaccines Aged Out No longer eligi ble based on patient's age to complete this topic HPV Vaccines Aged Out No longer eligi ble based on patient's age to complete this topic Hepatitis A Vaccines Aged Out No long er eligible based on patient's age to complete this topic IPV Vaccines Aged Out No longer eligi ble based on patient's age to complete this topic MMR Vaccines Aged Out No longer eligi ble based on patient's age to complete this topic Meningococcal ACWY Vaccine Aged Out N o longer eligible based on patient's age to complete this topic Meningococcal B Vaccine Aged Out No l onger eligible based on patient's age to complete this topic RSV Immunization Patients Under 20 months Aged Out No longer eligible b ased on patient's age to complete this topic Varicella Vaccines Aged Out No longer eligible based on patient's age to complete this topic Insurance [employer] MEDICARE ADVANTAGE Care Teams Extractor Puller Relationship Specialty Start Date End Date Ozzie Rivas PA [address] [place] [phone] PCP - General Physician Slab Lifting Supervisor 03/12/25
--- OUTSIDE RECORDS SUMMARY | 2025-10-07 09:57 | XMS_ITS | Clinical Summary ---
Author Organization [facility] Address [address] [place] [address] Care Team Providers Care Truck Headlight Assembler Name Role Phone Olivia Briceño Primary Care [...] (Shingrix) (1 of 2) 2020 COVID-19 Vaccine ( - 2024-2 6 season) 2025 Influenza (#1) 2025 RSV (1 - 1-dose 75+ series) 2045 HPV Vaccine (No Doses Required) Completed Hep A Aged Out No longer eligi ble based on patient's age to complete this topic Hib Aged Out No longer eligi ble based on patient's age to complete this topic Meningococcal ACWY Aged Out No longer eligible based on patient's age to complete this topic Care Teams Truck Headlight Assembler Relationship Specialty Start Date End Date Olivia Briceño PCP - General 07/04/23
== END 2025-10-07 10:27 | disposition home or self-care (01) ==
LOC: HO.HMCH 09:10
PROVIDERS: PCP Physician Assistant; Visit Provider Physician Assistant
DX: Z23 Encounter for immunization (principal)

== ENCOUNTER → 2025-10-07 09:09 | Outpatient (BNVA) | payer OTHER, SELFPAY | PROVIDERS: PCP Physician Assistant; Visit Provider Physician Assistant | DX: Z00.00 Encounter for general adult medical examination without abnormal findings (principal); Z23 Encounter for immunization; F31.9 Bipolar disorder, unspecified; D50.9 Iron deficiency anemia, unspecified; I10 Essential (primary) hypertension; E66.811 Obesity, class 1; Z78.9 Other specified health status; Z68.35 Body mass index [BMI] 35.0-35.9, adult | CPT/HCPCS: 90471; 90656; 96127 ==

== ENCOUNTER 2025-11-04 07:52 | Outpatient (REF) | payer OTHER, SELFPAY ==
--- NOTE | ~2025-11-04 | MM_ITS ---
EXAMINATION: MM SCREENING DIGITAL BREAST TOMOSYNTHESIS, BILATERAL CLINICAL INFORMATION: Screening. Asymptomatic. COMPARISON: Mammography: Comparison is made with available priors TECHNIQUE: Digital breast mammography with tomosynthesis is performed in both the craniocaudal and mediolateral oblique views along with computer-aided detection (CAD). FINDINGS: There are scattered areas of fibroglandular density. There are no significant masses, abnormal calcifications, or other abnormalities. MM/MM tomosynthesis screening BI IMPRESSION: No mammographic evidence of malignancy. ASSESSMENT: BI-RADS Category 1: Negative RECOMMENDATION: Routine annual mammography screening. 1 year F/U This examination should not preclude the clinical evaluation of a suspicious palpable abnormality. This patient's information was entered into a reminder system with a target due date for their next mammogram. Electronically signed by: Connie Briceno DO 11/05/2025 06:48 PM [facility]
--- OUTSIDE RECORDS SUMMARY | 2025-11-04 07:59 | XMS_ITS | Clinical Summary ---
Author Organization 175 [facility] Address [address] [place] [address] Phone Care Team Providers Care Business Objects Name Role Phone Ozzie Rivas Primary Care Provider [phone] Allergies No known active allergies Medications Vraylar [...] 9:30 AM EDT Office Visit Orthopedic Surgery [facility] [address] [place] [phone] Dago Moss, DPM Plantar fascial fibromatosis [...] AM EDT Office Visit Orthopedic Surgery - [place] [address] [phone] Dago Moss, DPM [address] [phone] Health Maintenance Due Date Last [...] topic Insurance [employer] MED[employer]VANTAGE Care Teams Business Objects Relationship Specialty Start Date End Date Ozzie Rivas PA [address] [place] [phone] PCP - General Physician Intermediate Card Tender 03/12/25
--- OUTSIDE RECORDS SUMMARY | 2025-11-04 07:59 | XMS_ITS | Clinical Summary ---
Author Organization [facility] Address [address] [place] [address] Care Team Providers Care Woodwork Teacher Name Role Phone Olivia Briceño Primary [...] age to complete this topic Care Teams Woodwork Teacher Relationship Specialty Start Date End Date Olivia Briceño PCP - General 07/04/23
[2025-11-04 09:19] LABS: Hematocrit 39.6 % (37.0-47.0); Hemoglobin 12.0 g/dl (12.0-16.0); Mean Corpuscular HGB Conc 30.3 g/dl (31.0-35.0); Mean Corpuscular Hemoglobin 21.6 pg (27.0-33.0); Mean Corpuscular Volume 71.4 fL (80.0-98.0); NRBC Abs Auto 0.000 X10*3/uL (0.0-0.012); NRBC Pct Auto 0.0 /100WBC (0.0-0.2); Platelet Count 333 X10*3/uL (160-400); Red Blood Count 5.55 X10*6/uL (4.20-5.50); White Blood Count 7.6 X10*3/uL (4.8-10.8)
[2025-11-04 09:53] LABS: Alanine Aminotransferase 25 U/L (0-31); Albumin Level 4.4 g/dL (3.5-5.0); Alkaline Phosphatase 68 U/L (39-117); Anion Gap 15 (12-20); Aspartate Amino Transferase 22 U/L (5-31); Blood Urea Nitrogen 15 mg/dL (9-16); Calcium 9.5 mg/dL (8.4-10.2); Carbon Dioxide 23 mmol/L (22-29); Chloride 109 mmol/L (96-108); Cholesterol 214 mg/dL (<200); Estimated Glomerular Filt Rate > 60; HDL Cholesterol 45 mg/dL (>40); Potassium 3.5 mmol/L (3.3-5.1); Sodium 143 mmol/L (135-145); Total Protein 7.4 g/dL (6.5-8.0); Triglycerides 73 mg/dL (<150)
== END 2025-11-04 07:53 | disposition home or self-care (01) ==
LOC: HO.MAMMO 07:52
PROVIDERS: PCP Physician Assistant; Visit Provider Physician Assistant
DX: Z12.31 Encounter for screening mammogram for malignant neoplasm of breast (principal); I10 Essential (primary) hypertension; E78.00 Pure hypercholesterolemia, unspecified; Z78.9 Other specified health status
CPT/HCPCS: 36415; 77063; 77067; 80053; 80061; 85027; 86787

== ENCOUNTER → 2025-11-04 08:00 | Outpatient (BNV) | payer OTHER, SELFPAY | PROVIDERS: PCP Physician Assistant; Visit Provider Internal Medicine | DX: Z12.31 Encounter for screening mammogram for malignant neoplasm of breast (principal) | CPT/HCPCS: 77063; 77067 ==